=== PATIENT | female | born 1950 | race African-American/Black ===

== ENCOUNTER → 2020-07-01 | Outpatient (CLI) | payer MEDICARE, OTHER ==
[2016-05-13 12:00] VITALS: BP 121/75
[~2020-07-01] MED LIST: ASCO100019 PO; LISI1TAB23 PO; OREG1500 PO; REGADENOSON 0.4 MG/5 ML DISP.SYRIN. IV ONE; ZOLP10TA PO
--- NOTE | 2020-07-01 14:50 | RAD ---
MR#: [id number] Date of Study: 07/01/2020 Ordering Physician: OANH ANDERSON, Referring Physician: ELIZABETH ORELLANA Tech: ARTUR Farias ARRT (R) (N) APPROVED REPORT Test Type: Exercise Stress Nurse/Tech: Mercedes Sommer RN Test Indications: CAD Cardiac History: Hypertension Medications: See Electronic Medical Record Medical History: See Electronic Medical Record Resting ECG: SR Resting Heart Rate: 63 bpm Resting Blood Pressure: 126/67mmHg Pretest Chest Pain: No chest pain Nurse/Tech Notes S1,S2 and lungs clear to auscultation. Stress Symptoms Dyspnea POST EXERCISE Reason for Termination: Reached target heart rate, Fatigue Target HR: Yes Max HR: 133 bpm 86% of Maximum Predicted HR: 149 bpm Exercise duration: 6:00 min:sec, 2 Stage Exercise capacity: 7.0METs Max Blood Pressure: 146/67mmHg Blood Pressure response to exercise: Normal blood pressure response during stress. Heart Rate response to exercise: WNL Chest Pain: No. Arrhythmia: No. ST Change: No. INTERPRETATION Stress EKG Conclusion: THe resting EKG showed a sinus rhythm with nonspecific ST-T wave changes. The stress EKG showed no significant changes from baseline. No EKG evidence of stress-induced ischemia. Imaging Protocol IMAGE PROTOCOL: Rest Tc-99m/stress Tc-99m 1 day Rest: Stress: Viability: Radiopharm.Tc99m XrgfcnmxaTf93m Sestamibi Kuco01bJf 33mCi Img Date 07/01/2020 07/01/2020 Inj-Img Erdo76att. 60min. Rest Admin Site:IV - Right AntecubitalAdministrator:ARTUR Farias ARRT (R)(N) Stress Admin Site: IV - Right AntecubitalAdministrator: RT Katherine (R)(N) STRESS DATA End Diast. Vol.63.0mlAv. Heart Rate83.0bpm End Syst. Vol.9.0mlCO Index BSA0.0L/min Myocardial Yekb896.0gEject. Bovkfbsw63.0% Stress Rates Pk. Fill Rate3.64EDV/secLVtime Pk. Fill 92.72msec Pk. Empty Rate3.98ESV/secLVtime Pk. Sjqkl283.01msec /3 Pk. Fill2.37EDV/sec Stress Scores Regional WT2.00Summed WT4.00 Regional WM0.00Summed WM0.00 LV Perfusion The stress scans showed no significant defects. The rest scans showed no significant defects. Nuclear imaging shows no reversible ischemia or infarct. Wall Motion Left ventricular systolic function is normal with an ejection fraction of greater than 70%. LV Perf. Quant 17 Seg. SSS4.00 17 Seg. SRS12.00 17 Seg. SDS0.00 Stress Defect Extent (% LAD)5.60Rest Defect Extent (% LAD)20.60Rev. Defect Extent (% LAD)0.00 Stress Defect Extent (% LCX) 7.50Rest Defect Extent (% LCX)25.00Rev. Defect Extent (% LCX)0.00 Stress Defect Extent (% RCA)0.00Rest Defect Extent (% RCA)22.20Rev. Defect Extent (% RCA)0.00 Stress Defect Extent (% AYUSH)5.00Rest Defect Extent (% AYUSH)26.30Rev. Defect Extent (% AYUSH)0.00 Conclusion 1. Good exercise tolerance. 2. No EKG evidence of stress-induced ischemia or arrhythmias. 3. Nuclear imaging shows no reversible ischemia or infarct. 4. Normal left ventricular systolic function with an ejection fraction of greater than 70%. 5. Low risk treadmill nuclear stress test. Signed by : Oanh Anderson MD Electronically Approved : 07/01/2020 14:49:35
== END | disposition home or self-care (01) ==
LOC: NM 09:01
PROVIDERS: ATTEND Internal Medicine Cardiovascular Disease
DX: I25.10 Atherosclerotic heart disease of native coronary artery without angina pectoris (principal); I10 Essential (primary) hypertension
CPT/HCPCS: 78452; 93017; A9500

== ENCOUNTER → 2021-03-04 | Outpatient (CLI) | payer MEDICARE, OTHER ==
[2016-05-13 12:00] VITALS: BP 121/75
[~2021-03-04] MED LIST changes: -REGADENOSON 0.4 MG/5 ML DISP.SYRIN. IV ONE
--- NOTE | 2021-03-04 14:03 | KCIC ---
EXAM: Left shoulder, 3 views. HISTORY: Pain after Covid 19 vaccine. COMPARISON: None. FINDINGS: 3 views of the left shoulder obtained. There is no fracture or subluxation. There is mild m arginal humeral head and glenoid spurring. IMPRESSION: 1. Mild glenohumeral osteoarthritis. 2. No acute osseous finding. Electronically signed by: Leonarda Choi MD (03/04/2021 2:00 PM) [id number]
== END ==
LOC: KCIC 13:24
PROVIDERS: ATTEND Internal Medicine
DX: M19.012 Primary osteoarthritis, left shoulder (principal); M77.8 Other enthesopathies, not elsewhere classified
CPT/HCPCS: 73030